=== PATIENT | female | born 1980 ===

== ENCOUNTER → 2020-09-24 | Outpatient (CLI) | payer OTHER | LOC: COL.PUL 12:25 | DX: R06.02 Shortness of breath (principal); Z77.22 Contact with and (suspected) exposure to environmental tobacco smoke (acute) (chronic) | CPT/HCPCS: J7674 ==

== ENCOUNTER → 2021-06-08 | Outpatient (CLI) | payer OTHER | LOC: COL.RAD 09:11 | DX: D18.09 Hemangioma of other sites (principal) | CPT/HCPCS: A9575 ==

== ENCOUNTER → 2021-08-19 | Outpatient (CLI) | payer OTHER | LOC: COL.VAS 13:03 | DX: R06.02 Shortness of breath (principal) ==